=== PATIENT | female | born 1970 | race Caucasian/White ===

== ENCOUNTER 2021-08-27 16:53 | Emergency (ER) | payer MEDICARE ==
[2021-08-27 20:38] LABS: HCT 40.5 % (37.0-47.0); HGB 13.5 g/dl (12.5-16.0); MCHC 33.3 g/dL (32.0-36.0); MPV 8.9 fL (6.0-9.5); RBC 4.5 M/uL (4.20-5.40); RDW 13.3 % (11.5-14.0); WBC 5.9 K/uL (4.0-10.5)
[2021-08-27 21:09] LABS: BUN/CREAT RATIO (CALC) 7.8 RATIO; CREATININE 0.64 mg/dL (0.51-0.95); POTASSIUM 4.2 mmol/L (3.5-5.1)
[2021-08-27] MEDS ORDERED: PRILOSEC20 MG PO (21:15)
== END 2021-08-27 22:04 | disposition home or self-care (01) ==
LOC: FER 16:53
PROVIDERS: Emergency Medicine
DX: K21.9 Gastro-esophageal reflux disease without esophagitis (principal); F17.200 Nicotine dependence, unspecified, uncomplicated; Z88.5 Allergy status to narcotic agent; Z88.6 Allergy status to analgesic agent
CPT/HCPCS: 36415; 71045; 80048; 84484; 93005